=== PATIENT | male | born 1950 | race Caucasian/White ===

== ENCOUNTER 2018-07-03 03:35 | Emergency (ER) | payer OTHER ==
[~2018-07-03] VITALS: Ht 170.2 cm; Wt 99.8 kg
[2018-07-03 03:37] VITALS: BP 148/90
--- NOTE | 2018-07-03 03:37 | NUR ---
TO BED # 08 AMBULATORY
--- NOTE | 2018-07-03 03:45 | NUR ---
BIB C/O GENERALIZED SHARP ABD PAIN X TODAY. N/V X3 TODAY. DENIES FEVER, COUGH, COB, CP. 12/08 PAIN AT THIS TIME. PATIENT IN BED, LOW AND LOCKED.
--- NOTE | 2018-07-03 03:49 | NUR ---
Dr. Singer evaluating patient at bedside.
[2018-07-03] MEDS ORDERED: NACL 0.9% 1,000 ML IV ONE (03:50)
[2018-07-03] MEDS ORDERED: ONDANSETRON 4 MG/2 ML VIAL IVP ONE (03:50)
[2018-07-03] MEDS ORDERED: fentaNYL 0.05 MG/ML VIAL IVP ONE (04:00)
--- NOTE | 2018-07-03 04:02 | NUR ---
PT TAKEN TO CT
--- NOTE | 2018-07-03 04:13 | NUR ---
PT RETURN FROM CT
[2018-07-03 04:17] LABS: BASOPHILS % (AUTO) 0.5 % (0.0-2.0); EOSINOPHILS # (AUTO) 0.2 K/uL (0-0.4); EOSINOPHILS % (AUTO) 2.2 % (0.0-4.0); HEMATOCRIT 48.4 % (36-52); HEMOGLOBIN 16.6 g/dL (12.0-18.0); LYMPHOCYTES # (AUTO) 1.4 K/uL (2.0-11.5); LYMPHOCYTES % (AUTO) 19.5 % (20.5-51.1); MEAN CORPUSCULAR HEMOGLOBIN 32 pg (27-31); MEAN CORPUSCULAR HGB CONC 34 g/dL (33-37); MEAN CORPUSCULAR VOLUME 93.4 fL (80-94); MONOCYTES # (AUTO) 0.3 K/uL (0.8-1.0); MONOCYTES % (AUTO) 4.6 % (1.7-9.3); NEUTROPHILS # (AUTO) 5.5 K/uL (1.8-7.7); NEUTROPHILS % (AUTO) 73.2 % (42.2-75.2); PLATELET COUNT (AUTO) 230 K/uL (140-450); RED BLOOD CELL COUNT(AUTO) 5.19 MIL/uL (4.20-6.10); RED CELL DISTRIBUTION WIDTH 13.8 % (11.6-13.7); WHITE BLOOD COUNT (AUTO) 7.4 K/uL (4.8-10.8)
[2018-07-03 04:23] LABS: ANION GAP 12.8 (8-16); CREATININE 1.6 mg/dL (0.7-1.3); POTASSIUM 3.8 mmol/L (3.5-5.1)
[2018-07-03 04:28] LABS: ALBUMIN 3.8 g/dL (3.4-5.0); TOTAL BILIRUBIN 0.4 mg/dL (0.0-1.0)
[2018-07-03 04:30] LABS: PROTHROMBIN TIME 9.9 secs (10.8-13.4)
[2018-07-03] MEDS ORDERED: KETOROLAC 30 MG/ML VIAL IVP ONE (04:50)
[2018-07-03 05:16] VITALS: BP 148/90
--- NOTE | 2018-07-03 05:17 | NUR ---
Patient discharged with v/s stable. Written and verbal after care instructions given and explained. Patient alert, oriented and verbalized understanding of instructions. Ambulatory with steady gait. All questions addressed prior to discharge. ID band removed. Patient advised to follow up with PMD. Rx of MINERAL OIL, ZOFRAN, LACTULOSE, MOTRIN given. Patient educated on indication of medication including possible reaction and side effects. Opportunity to ask questions provided and answered.
--- NOTE | 2018-07-06 12:09 | NUR ---
Late entry. Confirmed with RN that 1000 ml 0.9 NS IV bolus completed at 0459
== END 2018-07-03 05:17 | disposition home or self-care (01) ==
LOC: MED 03:35
DX: K59.00 Constipation, unspecified (principal); R11.2 Nausea with vomiting, unspecified; N28.9 Disorder of kidney and ureter, unspecified; I10 Essential (primary) hypertension
CPT/HCPCS: 36415; 74176; 80053; 83690; 85025; 85610; 85730; 87040; 96361; 96374; 96375; 99284; J1885; J2405; J3010; J7030